=== PATIENT | male | born 1960 | race Caucasian/White ===

== ENCOUNTER 2017-06-01 14:39 | Observation (INO) | payer BC ==
[2017-06-01 14:54] VITALS: BMI 21.2
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
--- NOTE | 2017-06-01 15:04 | PDOC ---
Attending Attestation - HPI HPI: 06/01/17 17:01 The patient is a 56 year old male, with a significant past medical history of acoustic neuroma (1cm), who presents to the emergency department with, approx. four days of progressively worsening tongue and lower right facial numbness. The patient describes the tongue and lower right facial numbness as progressing to more of a pins and needles sensation. The patient states he also noticed some bumps on his tongue approx. 4 days ago. He denies any tongue swelling or difficulty swallowing. He denies any recent fevers, chills, headache or dizziness. He denies any recent nausea, vomit, diarrhea or constipation. He denies any recent chest pain or shortness of breath. He denies any recent dysuria, frequency, urgency or hematuria. Allergies: NKA Documentation prepared by Norman Velasco, acting as medical records custodian for Leny Thomson DO. - Physicial Exam PE: 06/01/17 17:02 GENERAL: Awake, alert, and fully oriented, in no acute distress HEAD: No signs of trauma EYES: PERRLA, EOMI, sclera anicteric, conjunctiva clear ENT: Auricles normal inspection, hearing grossly normal, nares patent, oropharynx clear without exudates. Moist mucosa NECK: Normal ROM, supple, no lymphadenopathy, JVD, or masses LUNGS: Breath sounds equal, clear to auscultation bilaterally. No wheezes, and no crackles HEART: Regular rate and rhythm, normal S1 and S2, no murmurs, rubs or gallops ABDOMEN: Soft, nontender, normoactive bowel sounds. No guarding, no rebound. No masses EXTREMITIES: Normal range of motion, no edema. No clubbing or cyanosis. No cords, erythema, or tenderness NEUROLOGICAL: (+) Pins and needles sensation to the right side of face with palpation. Cranial nerves II through XII grossly intact. Normal speech, normal gait SKIN: Warm, Dry, normal turgor, no rashes or lesions noted. - Medical Decision Making 06/01/17 16:[address] Quintero at 4:30 pm. Case discussed. <Norman Velasco - Last Filed: 06/01/17 17:01> - Resident Resident Name: Syeda Talamantes - ED Attending Attestation I have performed the following: I have examined & evaluated the patient, The case was reviewed & discussed with the resident, I agree w/resident's findings & plan, Exceptions are as noted - Medical Decision Making 06/01/17 15:03 I, Dr. Leny Thomson, DO, attest that this document has been prepared under my direction and personally reviewed by me in its entirety. I further attest, that it accurately reflects all work, treatment, procedures and medical decision -making performed by me. 06/01/17 16:32 a/p: 56yo male with 4 days of lower lip and R sided tongue pins/needles -will check labs -will discuss with neuro with hx of acoustic neuroma for poss imaging otherwise neuro intact no facial droop 06/01/17 16:[address] Quintero - recommends MRI w/wo contrast for further eval of paresthesias labs pending 06/01/17 17:45 pt requires MRI - will keep in obs pending MRI consult placed to Dr. Quintero for eval in AM pt will be placed in obs under Dr. Shen <Leny Thomson - Last Filed: 06/01/17 17:46> Heart Score/ECG Review - ECG Intrepretation Comment:: 06/01/17 17:06 sinus at 70 w rbbb, q waves inferior leads that are age indeterminate <Leny Thomson - Last Filed: 06/01/17 17:46>
[2017-06-01 16:55] LABS: BASO % 1.1 % (0-2.0); EOS % 2.7 % (0-4.5); HEMATOCRIT 40.1 % (35.4-49); HEMOGLOBIN 13.6 GM/dL (11.7-16.9); LYMPH % 26.2 % (8-40); MCH 30.6 pg (25.7-33.7); MCHC 33.9 g/dl (32.0-35.9); MEAN CELL VOLUME 90.2 fl (80-96); MEAN PLT VOLUME 8.4 fl (7.5-11.1); MONO % 10.3 % (3.8-10.2); NEUT % 59.7 % (42.8-82.8); PLATELET COUNT 322 K/MM3 (134-434); RBC 4.45 M/mm3 (4.00-5.60); RDW 15.4 % (11.9-15.9); WHITE BLOOD COUNT 10.8 K/mm3 (4.0-10.0)
[2017-06-01 17:11] LABS: INR 1.02 (0.82-1.09); PROTHROMBIN TIME (PATIENT) 11.5 SEC (9.98-11.88)
[2017-06-01 17:14] LABS: ACTIVATED PTT 32.7 SECONDS (26.9-34.4)
[2017-06-01 17:21] LABS: ANION GAP 12 (8-16); BILIRUBIN,TOTAL 0.3 mg/dL (0.2-1.0); BLOOD UREA NITROGEN 14 mg/dL (7-18); CALCIUM 9.2 mg/dL (8.5-10.1); CHLORIDE 106 mmol/L (98-107); CO2 22 mmol/L (21-32); CREATININE 0.6 mg/dL (0.7-1.3); GLUCOSE,RANDOM 88 mg/dL (74-106); MAGNESIUM 2.1 mg/dL (1.8-2.4); POTASSIUM 4.2 mmol/L (3.5-5.1); SGOT/AST 37 U/L (15-37); SODIUM 140 mmol/L (136-145); TOT PROT 7.7 g/dl (6.4-8.2)
[2017-06-01 17:23] LABS: ALK PHOS 103 U/L (45-117); SGPT/ALT 57 U/L (12-78)
[2017-06-01 17:28] VITALS: BP 123/73; PULSE 70; TEMP 98.4
--- NOTE | 2017-06-01 18:55 | PN ---
Teaching Attending Note Name of Resident: Darling Daley ATTENDING PHYSICIAN STATEMENT I saw and evaluated the patient. I reviewed the resident's note and discussed the case with the resident. I agree with the resident's findings and plan as documented. SUBJECTIVE:56yo M with PMH acoustic neuroma coming in with parathesia limited to the upper lip and partial lower lip on R side of face. When came to assess pt states he has prescription of MRI awaiting insurance authorization. Does not want to stay unless MRI can be done tonight. Expressed desire to go home and will sign out AMA. plan to call his own neurologist in AM to expedite his MRI as he believes its a "specific" kind and does not want double MRI. counseled on risks and benefits of staying including worsening of symptoms, permanent damage, and . verbalized understanding of risks.
--- NOTE | 2017-06-01 18:55 | HP ---
CHIEF COMPLAINT: R sided tongue/facial numbness HISTORY OF PRESENT ILLNESS: 56yo man with PMH of acoustic neuroma who presents to ED with 4 days of partial R tongue and lower lip numbness. Denies any focal weakness and dizziness. Patient stated that he already has a prescription for MRI pending insurance authorization. Patient expressed that he does not wish to stay overnight if MRI can not be done this evening. Explained that we can not guarantee imaging will be done this evening. Pt expressed that he would like to go home. All risks and benefits of staying were discussed with the patient, including worsening of symptoms, permanent damage, and . The patient verbalized understanding of the risks and benefits. He agreed to call his Neurologist tomorrow morning to try to expedite the MRI, and will make him aware of his new symptoms. He was also given the name of Dr. Rosa, local Neurologist. HOME MEDICATIONS: Home Medications Medication Instructions Recorded Oxycodone HCl/Acetaminophen 1 - 2 tab PO Q6H PRN #0 tablet 07/22/12 [Percocet 5-325 mg Tablet] Aspirin [ASA -] 81 mg PO DAILY 06/01/17 Atorvastatin Ca [Lipitor] 80 mg PO HS 06/01/17 Carvedilol [Coreg -] 12.5 mg PO BID 06/01/17 Lisinopril [Prinivil] 10 mg PO DAILY 06/01/17 Prasugrel HCl [Effient] 10 mg PO DAILY 06/01/17 REVIEW OF SYSTEMS CONSTITUTIONAL: Absent: fever, chills, diaphoresis, generalized weakness, malaise, loss of appetite, weight change HEENT: Absent: rhinorrhea, nasal congestion, throat pain, throat swelling, difficulty swallowing, mouth swelling, ear pain, eye pain, visual changes CARDIOVASCULAR: Absent: chest pain, syncope, palpitations, irregular heart rate, lightheadedness , peripheral edema RESPIRATORY: Absent: cough, shortness of breath, dyspnea with exertion, orthopnea, wheezing, stridor, hemoptysis GASTROINTESTINAL: Absent: abdominal pain, abdominal distension, nausea, vomiting, diarrhea, constipation, melena, hematochezia GENITOURINARY: Absent: dysuria, frequency, urgency, hesitancy, hematuria, flank pain, genital pain MUSCULOSKELETAL: Absent: myalgia, arthralgia, joint swelling, back pain, neck pain SKIN: Absent: rash, itching, pallor HEMATOLOGIC/IMMUNOLOGIC: Absent: easy bleeding, easy bruising, lymphadenopathy, frequent infections ENDOCRINE: Absent: unexplained weight gain, unexplained weight loss, heat intolerance, cold intolerance NEUROLOGIC: +R sided tongue paresthesias Absent: headache, focal weakness or paresthesias, dizziness, unsteady gait, seizure, mental status changes, bladder or bowel incontinence PSYCHIATRIC: Absent: anxiety, depression, suicidal or homicidal ideation, hallucinations. PHYSICAL EXAMINATION Vital Signs - 24 hr 06/01/17 06/01/17 14:51 17:26 Temperature 98 F 98.4 F Pulse Rate 81 Pulse Rate [ 70 Left Apical] Respiratory 20 16 Rate Blood Pressure 137/90 Blood Pressure 123/73 [Left Arm] O2 Sat by Pulse 99 98 Oximetry (%) PE: N/A Laboratory Results - last 24 hr 06/01/17 06/01/17 06/01/17 16:34 16:34 16:45 WBC 10.8 H D RBC 4.45 Hgb 13.6 Hct 40.1 MCV 90.2 MCH 30.6 MCHC 33.9 RDW 15.4 Plt Count 322 MPV 8.4 D Neutrophils % 59.7 D Lymphocytes % 26.2 D Monocytes % 10.3 H Eosinophils % 2.7 Basophils % 1.1 PT with INR 11.50 INR 1.02 PTT (Actin FS) 32.7 Sodium 140 Potassium 4.2 Chloride 106 Carbon Dioxide 22 D Anion Gap 12 BUN 14 Creatinine 0.6 L Creat Clearance w eGFR > 60 Random Glucose 88 Calcium 9.2 Magnesium 2.1 Total Bilirubin 0.3 AST 37 D ALT 57 D Alkaline Phosphatase 103 Total Protein 7.7 Albumin 4.0 Visit type - Emergency Visit Emergency Visit: Yes ED Registration Date: 06/01/17 Care time: The patient presented to the Emergency Department on the above date and was hospitalized for further evaluation of their emergent condition. - New Patient This patient is new to me today: Yes Date on this admission: 06/01/17 - Critical Care Critical Care patient: No Hospitalist Screening - Colonoscopy Questionnaire Colonoscopy Questionnaire: Colonoscopy Questionnaire - Patient: 50 - 75 years old and never had a screening colonoscopy: Unknown History of colon or rectal polyps, or CA: Unknown History of IBD, Crohn's disease or UC: Unknown History of abdominal radiation therapy as a child: Unknown - Relative: 1 with colon or rectal CA, or polyps at age 60 or younger: Unknown Colon or rectal CA diagnosed at age 45 or younger: Unknown Multiple relatives with colon or rectal CA: Unknown - Outcome: Screening Result: Negative Screen
--- NOTE | 2017-06-01 19:11 | DS ---
Physical Exam: SUBJECTIVE: Patient seen and examined. OBJECTIVE: Vital Signs Period Temp Pulse Resp BP Sys/Smiley Pulse Ox Last 24 Hr 98 F-98.4 F 70-81 16-20 123-137/73-90 98-99 PHYSICAL EXAM: N/A Laboratory Results - last 24 hr 06/01/17 06/01/17 06/01/17 16:34 16:34 16:45 WBC 10.8 H D RBC 4.45 Hgb 13.6 Hct 40.1 MCV 90.2 MCH 30.6 MCHC 33.9 RDW 15.4 Plt Count 322 MPV 8.4 D Neutrophils % 59.7 D Lymphocytes % 26.2 D Monocytes % 10.3 H Eosinophils % 2.7 Basophils % 1.1 PT with INR 11.50 INR 1.02 PTT (Actin FS) 32.7 Sodium 140 Potassium 4.2 Chloride 106 Carbon Dioxide 22 D Anion Gap 12 BUN 14 Creatinine 0.6 L Creat Clearance w eGFR > 60 Random Glucose 88 Calcium 9.2 Magnesium 2.1 Total Bilirubin 0.3 AST 37 D ALT 57 D Alkaline Phosphatase 103 Total Protein 7.7 Albumin 4.0 HOSPITAL COURSE: Date of Admission:06/01/17 Date of Discharge: 06/01/17 56yo man with PMH of acoustic neuroma who presents to ED with 4 days of partial R tongue and lower lip numbness. Denies any focal weakness and dizziness. Patient stated that he already has a prescription for MRI pending insurance authorization. Patient expressed that he does not wish to stay overnight if MRI can not be done this evening. Explained that we can not guarantee imaging will be done this evening. Pt expressed that he would like to go home. All risks and benefits of staying were discussed with the patient, including worsening of symptoms, permanent damage, and . The patient verbalized understanding of the risks and benefits. He agreed to call his Neurologist tomorrow morning to try to expedite the MRI, and will make him aware of his new symptoms. He was also given the name of Dr. Rosa, local Neurologist. Patient left AMA. Minutes to complete discharge: 30 Discharge Summary Reason For Visit: FACIAL PARESTHESIA - Instructions - Home Medications Comprehensive Discharge Medication List: Ambulatory Orders Oxycodone HCl/Acetaminophen [Percocet 5-325 mg Tablet] 1 - 2 tab PO Q6H PRN #0 tablet 07/22/12 Aspirin [ASA -] 81 mg PO DAILY 06/01/17 Atorvastatin Ca [Lipitor] 80 mg PO HS 06/01/17 Carvedilol [Coreg -] 12.5 mg PO BID 06/01/17 Lisinopril [Prinivil] 10 mg PO DAILY 06/01/17 Prasugrel HCl [Effient] 10 mg PO DAILY 06/01/17 This patient is new to me today: Yes Date on this admission: 06/01/17 Emergency Visit: Yes ED Registration Date: 06/01/17 Care time: The patient presented to the Emergency Department on the above date and was hospitalized for further evaluation of their emergent condition. Critical Care patient: No - Discharge Referral Referred to [facility] No
--- NOTE | 2017-06-02 14:56 | EKG ---
Test Reason : Blood Pressure : / mmHG Vent. Rate : 070 BPM Atrial Rate : 070 BPM P-R Int : 138 ms QRS Dur : 134 ms QT Int : 410 ms P-R-T Axes : 018 114 045 degrees QTc Int : 442 ms NORMAL SINUS RHYTHM RIGHT BUNDLE BRANCH BLOCK LEFT POSTERIOR FASCICULAR BLOCK BIFASCICULAR BLOCK POSSIBLE INFERIOR INFARCT (CITED ON OR BEFORE 17-SEP-2015) ANTEROSEPTAL INFARCT (CITED ON OR BEFORE 17-SEP-2015) ABNORMAL ECG WHEN COMPARED WITH ECG OF 17-SEP-2015 20:21, LEFT POSTERIOR FASCICULAR BLOCK IS NOW PRESENT QUESTIONABLE CHANGE IN INITIAL FORCES OF ANTEROSEPTAL LEADS ST NO LONGER ELEVATED IN ANTERIOR LEADS Confirmed by MELVA WILLIAM, ISMAEL ([id number]) on 06/02/2017 2:56:24 PM Referred By: Confirmed By:ISMAEL FRYE MD
== END 2017-06-01 19:38 | disposition left against medical advice (07) ==
LOC: JER 14:39 → JERBED 17:37
PROVIDERS: ADMIT Internal Medicine; ATTEND Internal Medicine
DX: R20.2 Paresthesia of skin (principal); D33.3 Benign neoplasm of cranial nerves; I25.2 Old myocardial infarction; F17.210 Nicotine dependence, cigarettes, uncomplicated; Z95.5 Presence of coronary angioplasty implant and graft; Z79.82 Long term (current) use of aspirin; Z86.79 Personal history of other diseases of the circulatory system
CPT/HCPCS: 36415; 71046-TC-FY; 80053; 83735; 85025; 85610; 85730; 93005; 93010; 99285-25; G0378

== ENCOUNTER 2021-07-11 08:08 | Emergency (ER) | payer BC ==
[2021-07-11 08:17] VITALS: TEMP 98.3; BMI 21.2
[2021-07-11] MEDS ORDERED: FAMOTIDINE 20 MG/50 ML IVPB 20 MG/50 ML MG IVPB ONE (08:43)
[2021-07-11] MEDS ORDERED: DEXAMETHASONE SOD PHOSPHATE 10 MG/1 ML VIAL IVPUSH ONE (08:43)
[2021-07-11] MEDS ORDERED: DEXAMETHASONE SOD PHOSPHATE 10 MG/1 ML VIAL ONE (08:47)
[2021-07-11] MEDS ORDERED: FAMOTIDINE 10 MG/ML VIAL IVPB ONE (08:48)
[2021-07-11 09:07] LABS: BASO % 1.1 % (0-2.0); EOS % 0.4 % (0-4.5); HEMATOCRIT 42.8 % (35.4-49); HEMOGLOBIN 14.6 GM/dL (11.7-16.9); LYMPH % 12.3 % (8-40); MCH 32.4 pg (25.7-33.7); MEAN CELL VOLUME 95.3 fl (80-96); MEAN PLT VOLUME 8.9 fl (7.5-11.1); MONO % 8.9 % (3.8-10.2); NEUT % 77.3 % (42.8-82.8); PLATELET COUNT 231 10^3/uL (134-434); RBC 4.49 M/mm3 (4.00-5.60); RDW 15.3 % (11.9-15.9); WHITE BLOOD COUNT 8.4 K/mm3 (4.0-10.0)
[2021-07-11 09:44] LABS: ALBUMIN 3.6 g/dl (3.4-5.0); CALCIUM 9.4 mg/dL (8.5-10.1)
[2021-07-11 09:45] LABS: BLOOD UREA NITROGEN 20.8 mg/dL (7-18)
[2021-07-11 09:47] LABS: CREATININE 0.6 mg/dL (0.55-1.3)
[2021-07-11 09:48] LABS: TOT PROT 7.4 g/dl (6.4-8.2)
[2021-07-11] MEDS ORDERED: oxyCODONE HCL 5 MG TABLET PO ONE (12:56)
[2021-07-11] MEDS ORDERED: oxyCODONE HCL 5 MG TABLET ONE (13:18)
[2021-07-11 14:33] VITALS: BP 124/78; PULSE 116
== END 2021-07-11 15:30 | disposition home or self-care (01) ==
LOC: JER 08:08
PROC: 3E033GC Introduction of Other Therapeutic Substance into Peripheral Vein, Percutaneous Approach (ICD-10-PCS; principal; 2021-07-11)
DX: T78.3XXA Angioneurotic edema, initial encounter (principal)
CPT/HCPCS: 36415; 80053; 85025; 99284-25; J1100

== ENCOUNTER 2022-03-31 09:12 | Inpatient (IN) | payer BC, OTHER ==
[2022-03-31] MEDS ORDERED: FOLIC ACID INJECTION - 1 MG, THIAMINE HCL 100 MG, MULTIVIT INJECTION ADULT 10 ML in SOD... IVPB ONE (11:03)
[2022-03-31 11:06] LABS: BASO % 1.4 % (0-2.0); EOS % 0.7 % (0-4.5); HEMATOCRIT 37.3 % (35.4-49); HEMOGLOBIN 12.2 GM/dL (11.7-16.9); LYMPH % 16.3 % (8-40); MCH 32.2 pg (25.7-33.7); MCHC 32.8 g/dl (32.0-35.9); MEAN CELL VOLUME 98.3 fl (80-96); MONO % 6.2 % (3.8-10.2); NEUT % 75.4 % (42.8-82.8); PLATELET COUNT 352 10^3/uL (134-434); RBC 3.79 M/mm3 (4.00-5.60); RDW 15.2 % (11.9-15.9); WHITE BLOOD COUNT 10.5 K/mm3 (4.0-10.0)
[2022-03-31] MEDS ORDERED: DIPHTH,PERTUSS(ACELL),TET 0.5 ML DISP.SYRIN IM ONE ×2 (11:06→14:05)
[2022-03-31 11:21] LABS: CALCIUM 8.6 mg/dL (8.5-10.1)
[2022-03-31 11:22] LABS: ALBUMIN 3.2 g/dl (3.4-5.0); BLOOD UREA NITROGEN 12.3 mg/dL (7-18)
[2022-03-31 11:25] LABS: CREATININE 0.4 mg/dL (0.55-1.3)
[2022-03-31 11:26] LABS: BILIRUBIN,TOTAL 0.2 mg/dL (0.2-1); TOT PROT 7.3 g/dl (6.4-8.2)
[2022-03-31 11:54] LABS: ACTIVATED PTT 32.3 SECONDS (25.2-36.5); INR 0.88 (0.83-1.09); PROTHROMBIN TIME (PATIENT) 10.1 SEC (9.7-13.0)
[2022-03-31] MEDS ORDERED: MAGNESIUM SULF 50% (8.12 MEQ/2 ML-1 GM VIAL) IVPB ONE (17:51)
[2022-03-31 18:48] LABS: MAGNESIUM 1.6 mg/dL (1.8-2.4)
[2022-03-31] MEDS ORDERED: MAGNESIUM SULFATE IN WATER 2 GM/50 ML IVPB IVPB ONE (18:50)
[2022-03-31] MEDS ORDERED: chlordiazePOXIDE HCL 25 MG CAPSULE PO ONE (19:19)
[2022-03-31] MEDS ORDERED: chlordiazePOXIDE HCL 25 MG CAPSULE ONE (19:36)
[2022-03-31] MEDS ORDERED: diazePAM CARPU-JECT 10 MG/2 ML DISP.SYRIN IVPUSH ONE (21:29)
[2022-03-31] MEDS ORDERED: diazePAM CARPU-JECT 10 MG/2 ML DISP.SYRIN ONE (21:40)
[2022-04-01 03:59] LABS: PHOSPHOROUS 3.5 mg/dL (2.5-4.9)
[2022-04-01 04:30] VITALS: BMI 18.8
[2022-04-01] MEDS ORDERED: amLODIPine BESYLATE 5 MG TABLET (FP) PO ONE (04:42)
[2022-04-01] MEDS ORDERED: ACETAMINOPHEN 500 MG TABLET (FP) PO ONE (04:43)
[2022-04-01] MEDS ORDERED: FOLIC ACID INJECTION - 1 MG, THIAMINE HCL 100 MG, MULTIVIT INJECTION ADULT 10 ML in SOD... IVPB ONE (05:03)
[2022-04-01] MEDS ORDERED: diazePAM 5 MG TABLET PO PRN (05:06)
[2022-04-01] MEDS ORDERED: LORazepam 2 MG/ML SDV VIAL IVPUSH PRN (05:07)
[2022-04-01] MEDS: diazePAM 5 MG TABLET PO SCH ×4 (06:34→22:05)
[2022-04-01] MEDS ORDERED: LISINOPRIL 10 MG TABLET PO SCH (10:00)
[2022-04-01 11:33] LABS: EOS % 1.3 % (0-4.5); HEMOGLOBIN 12.5 GM/dL (11.7-16.9); LYMPH % 13.3 % (8-40); MCH 32.6 pg (25.7-33.7); MCHC 33.7 g/dl (32.0-35.9); MEAN CELL VOLUME 96.9 fl (80-96); MEAN PLT VOLUME 9.1 fl (7.5-11.1); MONO % 7.3 % (3.8-10.2); NEUT % 77.1 % (42.8-82.8); PLATELET COUNT 315 10^3/uL (134-434); RBC 3.82 M/mm3 (4.00-5.60); RDW 14.8 % (11.9-15.9); WHITE BLOOD COUNT 11.1 K/mm3 (4.0-10.0)
[2022-04-01 11:50] LABS: BLOOD UREA NITROGEN 9.6 mg/dL (7-18); CALCIUM 8.8 mg/dL (8.5-10.1); MAGNESIUM 1.9 mg/dL (1.8-2.4)
[2022-04-01 11:53] LABS: CREATININE 0.5 mg/dL (0.55-1.3); PHOSPHOROUS 2.7 mg/dL (2.5-4.9)
[2022-04-01 11:55] LABS: BILIRUBIN,TOTAL 0.9 mg/dL (0.2-1); TOT PROT 6.9 g/dl (6.4-8.2)
[2022-04-01] MEDS ORDERED: POTASSIUM CHLORIDE TABS 20 MEQ TABLET.ER (FP) PO ONE (12:45)
[2022-04-01] MEDS: FOLIC ACID 1 MG TABLET (FP) PO SCH (12:49)
[2022-04-01] MEDS: CARVEDILOL 12.5 MG TABLET (FP) PO SCH ×2 (12:50→22:05)
[2022-04-01] MEDS: THIAMINE HCL 200 MG/2 ML VIAL IVPB SCH (12:51)
[2022-04-01] MEDS: amLODIPine BESYLATE 5 MG TABLET (FP) PO SCH (16:04)
[2022-04-01] MEDS: LIDOCAINE 5% TOPICAL PATCH TP SCH (16:19)
[2022-04-01] MEDS: ACETAMINOPHEN 325 MG TABLET (FP) PO PRN ×2 (16:36→22:06)
[2022-04-01 19:58] LABS: PH,URINE 7.5 (5.0-8.0); URINE APPEARANCE TURBID; URINE BILIRUBIN NEGATIVE (NEGATIVE); URINE COLOR YELLOW; URINE GLUCOSE (UA) NEGATIVE (NEGATIVE); URINE KETONE NEGATIVE (NEGATIVE); URINE LEUK ESTERASE NEGATIVE (NEGATIVE); URINE NITRITE NEGATIVE (NEGATIVE); URINE PROTEIN NEGATIVE (NEGATIVE); URINE UROBILINOGEN 0.2 mg/dL (0.2-1.0)
[2022-04-01] MEDS: LIDOCAINE PATCH REMOVAL MC SCH (22:11)
[2022-04-02] MEDS ORDERED: KETOROLAC TROMETHAMINE 15 MG/ML VIAL IVPUSH ONE (01:59)
[2022-04-02] MEDS: diazePAM 5 MG TABLET PO SCH ×3 (06:14→21:17)
[2022-04-02] MEDS: CARVEDILOL 12.5 MG TABLET (FP) PO SCH ×2 (09:46→21:22)
[2022-04-02] MEDS: FOLIC ACID 1 MG TABLET (FP) PO SCH (09:46)
[2022-04-02] MEDS: amLODIPine BESYLATE 5 MG TABLET (FP) PO SCH (09:46)
[2022-04-02] MEDS: THIAMINE HCL 200 MG/2 ML VIAL IVPB SCH (09:47)
[2022-04-02] MEDS: LIDOCAINE 5% TOPICAL PATCH TP SCH (09:47)
[2022-04-02 09:53] LABS: BASO % 0.7 % (0-2.0); EOS % 2.7 % (0-4.5); HEMATOCRIT 36.8 % (35.4-49); HEMOGLOBIN 12.2 GM/dL (11.7-16.9); LYMPH % 14.6 % (8-40); MCH 32.6 pg (25.7-33.7); MCHC 33.3 g/dl (32.0-35.9); MEAN CELL VOLUME 97.8 fl (80-96); MEAN PLT VOLUME 9.4 fl (7.5-11.1); MONO % 10.2 % (3.8-10.2); NEUT % 71.8 % (42.8-82.8); PLATELET COUNT 269 10^3/uL (134-434); RBC 3.76 M/mm3 (4.00-5.60); RDW 14.3 % (11.9-15.9); WHITE BLOOD COUNT 9.8 K/mm3 (4.0-10.0)
[2022-04-02 10:55] LABS: ALBUMIN 2.8 g/dl (3.4-5.0); BLOOD UREA NITROGEN 8.9 mg/dL (7-18); MAGNESIUM 1.9 mg/dL (1.8-2.4)
[2022-04-02 10:58] LABS: CREATININE 0.4 mg/dL (0.55-1.3)
[2022-04-02 11:00] LABS: BILIRUBIN,TOTAL 0.6 mg/dL (0.2-1); TOT PROT 6.7 g/dl (6.4-8.2)
[2022-04-02] MEDS: POTASSIUM CHLORIDE TABS 20 MEQ TABLET.ER (FP) PO SCH ×2 (11:44→21:16)
[2022-04-02] MEDS: ACETAMINOPHEN 325 MG TABLET (FP) PO PRN ×2 (11:44→21:41)
[2022-04-02] MEDS: MULTIVITAMINS (DAILY MVI) TABLET (FP) PO SCH (11:44)
[2022-04-02] MEDS: AMINO ACIDS/PROTEIN HYDROLYS 30 ML LIQUID.PKT PO SCH ×2 (11:44→17:46)
[2022-04-02] MEDS ORDERED: ATORVASTATIN CA 80 MG TABLET (FP) PO SCH (22:00)
[2022-04-02] MEDS: LIDOCAINE PATCH REMOVAL MC SCH (23:16)
[2022-04-03] MEDS ORDERED: diazePAM 5 MG TABLET PO SCH (06:00)
[2022-04-03 06:31] VITALS: BP 137/84
[2022-04-03 08:46] LABS: BASO % 0.8 % (0-2.0); EOS % 2.8 % (0-4.5); HEMATOCRIT 36.5 % (35.4-49); HEMOGLOBIN 12.1 GM/dL (11.7-16.9); LYMPH % 13.1 % (8-40); MCH 32.6 pg (25.7-33.7); MCHC 33.1 g/dl (32.0-35.9); MEAN CELL VOLUME 98.5 fl (80-96); MEAN PLT VOLUME 9.9 fl (7.5-11.1); MONO % 10.7 % (3.8-10.2); NEUT % 72.6 % (42.8-82.8); PLATELET COUNT 234 10^3/uL (134-434); RDW 14.9 % (11.9-15.9); WHITE BLOOD COUNT 10.7 K/mm3 (4.0-10.0)
[2022-04-03 09:23] LABS: CALCIUM 8.9 mg/dL (8.5-10.1)
[2022-04-03 09:24] LABS: ALBUMIN 2.7 g/dl (3.4-5.0); BLOOD UREA NITROGEN 10.2 mg/dL (7-18); MAGNESIUM 1.7 mg/dL (1.8-2.4)
[2022-04-03 09:27] LABS: CREATININE 0.4 mg/dL (0.55-1.3)
[2022-04-03 09:28] LABS: BILIRUBIN,TOTAL 0.2 mg/dL (0.2-1)
[2022-04-03 09:29] LABS: TOT PROT 6.5 g/dl (6.4-8.2)
[2022-04-03] MEDS: CARVEDILOL 12.5 MG TABLET (FP) PO SCH (09:32)
[2022-04-03] MEDS: amLODIPine BESYLATE 5 MG TABLET (FP) PO SCH (09:32)
[2022-04-03] MEDS: AMINO ACIDS/PROTEIN HYDROLYS 30 ML LIQUID.PKT PO SCH (09:32)
[2022-04-03] MEDS: FOLIC ACID 1 MG TABLET (FP) PO SCH (09:32)
[2022-04-03] MEDS: LIDOCAINE 5% TOPICAL PATCH TP SCH (09:32)
[2022-04-03] MEDS: MULTIVITAMINS (DAILY MVI) TABLET (FP) PO SCH (09:32)
[2022-04-03] MEDS ORDERED: MAGNESIUM OXIDE 400 MG TABLET (FP) PO ONE (09:44)
[2022-04-03] MEDS: THIAMINE HCL 200 MG/2 ML VIAL IVPB SCH (10:30)
[2022-04-03 15:57] VITALS: PULSE 98; RESP 20; TEMP 97.5
[2022-04-04] MEDS ORDERED: diazePAM 5 MG TABLET PO ONE (06:00)
== END 2022-04-03 15:20 | disposition home or self-care (01) | DRG 896 ==
LOC: JER 09:12 → JERBED 04-01 01:47 → J8W 04-01 03:40
PROVIDERS: ADMIT Internal Medicine; ATTEND Nurse Practitioner Acute Care
DX: F10.230 Alcohol dependence with withdrawal, uncomplicated (principal); G93.41 Metabolic encephalopathy; E46 Unspecified protein-calorie malnutrition; Z68.1 Body mass index [BMI] 19.9 or less, adult; S01.81XA Laceration without foreign body of other part of head, initial encounter; M25.512 Pain in left shoulder; M25.511 Pain in right shoulder; I10 Essential (primary) hypertension; G89.29 Other chronic pain; I25.2 Old myocardial infarction; F17.210 Nicotine dependence, cigarettes, uncomplicated; R74.01 Elevation of levels of liver transaminase levels; G25.2 Other specified forms of tremor; W01.0XXA Fall on same level from slipping, tripping and stumbling without subsequent striking against object, initial encounter; Y93.89 Activity, other specified; Y92.89 Other specified places as the place of occurrence of the external cause; Y99.8 Other external cause status
CPT/HCPCS: 0241U-QW; 36415; 70450-TC; 70486-TC; 71045-TC-FY; 72125-TC; 72170-TC-FY; 73030-TC-LT-FY; 73030-TC-RT-FY; 73610-TC-RT-FY; 73630-TC-RT-FY; 80053; 80307; 81003; 82550; 83735; 84100; 84484; 85025; 85610; 85730; 87086; 90715; 93005; 93010; 97116-GP; 97161-GP; 99285-25

== ENCOUNTER → 2022-05-17 | Day surgery (SDC) | payer OTHER, BC | END | disposition home or self-care (01) | LOC: JRADIR 13:44 | PROVIDERS: ATTEND Orthopaedic Surgery Sports Medicine | PROC: 0R9K3ZZ Drainage of Left Shoulder Joint, Percutaneous Approach (ICD-10-PCS; principal; 2022-05-17) | DX: M25.412 Effusion, left shoulder (principal) | CPT/HCPCS: 20610 ==

== ENCOUNTER 2022-06-24 04:12 | Day surgery (SDC) | payer OTHER, BC ==
[2022-06-20 12:57] VITALS: BMI 20.6
[2022-06-24] MEDS ORDERED: PROPOFOL 40 ML ONE (07:28)
[2022-06-24] MEDS ORDERED: MIDAZOLAM HCL 2 MG/2 ML SINGLE DOSE VIAL ONE (07:28)
[2022-06-24] MEDS ORDERED: SUCCINYLCHOLINE CHLORIDE 200 MG/10 ML SYRINGE ONE (07:29)
[2022-06-24] MEDS ORDERED: BUPIVACAINE LIPOSOME/PF (EXPAREL) 266 MG/20 ML VIAL ONE (07:36)
[2022-06-24] MEDS ORDERED: DEXAMETHASONE SOD PHOSPHATE 10 MG/1 ML VIAL ONE (07:36)
[2022-06-24] MEDS ORDERED: BUPIVACAINE HCL/PF 0.5% (5MG/ML) 10 ML VIAL ONE (07:36)
[2022-06-24] MEDS ORDERED: ceFAZolin SODIUM 1 GM VIAL ONE (07:37)
[2022-06-24] MEDS ORDERED: ceFAZolin SODIUM 1 GM VIAL IVPB ONE (09:40)
[2022-06-24] MEDS ORDERED: ONDANSETRON 4 MG/2 ML VIAL IVPUSH PRN (12:09)
[2022-06-24] MEDS: ASPIRIN 81 MG CHEWABLE TABLETS PO SCH (13:46)
[2022-06-24] MEDS: PRASUGREL HCL 10 MG TAB PO SCH (13:46)
[2022-06-24] MEDS: CARVEDILOL 12.5 MG TABLET (FP) PO SCH ×2 (13:46→21:35)
[2022-06-24] MEDS: oxyCODONE HCL 5 MG TABLET PO PRN ×2 (13:58→20:17)
[2022-06-24] MEDS: CEFAZOLIN SODIUM 2 GM in DEXTROSE 5%-WATER - 50 ML IVPB SCH (17:22)
[2022-06-24] MEDS ORDERED: ceFAZolin 2 GRAM PREMIX BAG IVPB SCH (18:00)
[2022-06-24] MEDS: ATORVASTATIN CA 80 MG TABLET (FP) PO SCH ×2 (21:35→21:42)
[2022-06-25] MEDS: CEFAZOLIN SODIUM 2 GM in DEXTROSE 5%-WATER - 50 ML IVPB SCH ×2 (02:04→09:06)
[2022-06-25] MEDS: oxyCODONE HCL 5 MG TABLET PO PRN ×3 (03:58→14:13)
[2022-06-25] MEDS ORDERED: CEFAZOLIN SODIUM 2 GM VIAL ONE (09:03)
[2022-06-25] MEDS: ASPIRIN 81 MG CHEWABLE TABLETS PO SCH ×2 (09:06→09:13)
[2022-06-25] MEDS: PRASUGREL HCL 10 MG TAB PO SCH ×2 (09:06→09:13)
[2022-06-25] MEDS: CARVEDILOL 12.5 MG TABLET (FP) PO SCH (09:06)
[2022-06-25 11:43] VITALS: BP 145/82; PULSE 98; RESP 20; TEMP 98
== END 2022-06-25 14:50 | disposition home or self-care (01) ==
LOC: JASUSAT 04:12 → J6S 13:27 → JASUSAT 06-25 14:50
PROVIDERS: ATTEND Orthopaedic Surgery
PROC: 0RRK00Z Replacement of Left Shoulder Joint with Reverse Ball and Socket Synthetic Substitute, Open Approach (ICD-10-PCS; principal; 2022-06-24 08:00)
DX: M13.812 Other specified arthritis, left shoulder (principal)
CPT/HCPCS: 23472; C1713; 73060-TC-LT-FY; 94760; 97116-GP; 97162-GP; C1776; J1100

== ENCOUNTER 2022-12-19 13:39 | Inpatient (IN) | payer OTHER, BC ==
[2022-12-19] MEDS ORDERED: diazePAM CARPU-JECT 10 MG/2 ML DISP.SYRIN IVPUSH ONE (14:22)
[2022-12-19] MEDS ORDERED: LACTATED RINGERS SOLUTION 1000 ML INFUS.BAG IV ONE ×2 (14:22→17:13)
[2022-12-19] MEDS ORDERED: diazePAM CARPU-JECT 10 MG/2 ML DISP.SYRIN ONE (14:34)
[2022-12-19 15:27] LABS: BASO % 0.3 % (0-2.0); EOS % 1.4 % (0-4.5); HEMOGLOBIN 11.7 GM/dL (11.7-16.9); LYMPH % 12.2 % (8-40); MCH 29.5 pg (25.7-33.7); MCHC 32.6 g/dl (32.0-35.9); MEAN CELL VOLUME 90.5 fl (80-96); MEAN PLT VOLUME 8.9 fl (7.5-11.1); MONO % 5.8 % (3.8-10.2); NEUT % 80.3 % (42.8-82.8); PLATELET COUNT 160 10^3/uL (134-434); RBC 3.98 M/mm3 (4.00-5.60); RDW 19.5 % (11.9-15.9); WHITE BLOOD COUNT 12.6 K/mm3 (4.0-10.0)
[2022-12-19 15:34] LABS: INR 0.92 (0.83-1.09); PROTHROMBIN TIME (PATIENT) 10.7 SEC (9.7-13.0)
[2022-12-19 15:37] LABS: ACTIVATED PTT 25.7 SECONDS (25.2-36.5)
[2022-12-19 16:03] LABS: LACTIC ACID 2.3 mmol/L (0.4-2.0)
[2022-12-19 16:46] LABS: CHLORIDE 98 mmol/L (98-107); POTASSIUM 3.6 mmol/L (3.5-5.1); SODIUM 135 mmol/L (136-145)
[2022-12-19 16:47] LABS: ALBUMIN 3.4 g/dl (3.4-5.0); ANION GAP 9 MMOL/L (8-16); CALCIUM 9.2 mg/dL (8.5-10.1); CO2 28 mmol/L (21-32)
[2022-12-19 16:49] LABS: BLOOD UREA NITROGEN 23.3 mg/dL (7-18); GLUCOSE,RANDOM 127 mg/dL (74-106)
[2022-12-19 16:51] LABS: CREATININE 0.8 mg/dL (0.55-1.3); SGOT/AST 33 U/L (15-37); SGPT/ALT 39 U/L (13-61)
[2022-12-19 16:52] LABS: BILIRUBIN,TOTAL 0.7 mg/dL (0.2-1); TOT PROT 6.9 g/dl (6.4-8.2)
[2022-12-19 16:54] LABS: ALK PHOS 120 U/L (45-117)
[2022-12-19 18:03] LABS: VENOUS BASE EXCESS 4.5 mmol/L (-2-2); VENOUS O2 SATURATION 63.4 % (70-80); VENOUS PCO2 40.7 mmHg (38-52); VENOUS PH 7.465 (7.310-7.410)
[2022-12-19] MEDS ORDERED: ACETAMINOPHEN 325 MG TABLET (FP) PO PRN (22:00)
[2022-12-19] MEDS: CARVEDILOL 12.5 MG TABLET (FP) PO SCH (22:46)
[2022-12-19] MEDS: ATORVASTATIN CA 80 MG TABLET (FP) PO SCH (22:47)
[2022-12-19] MEDS: oxyCODONE HCL 5 MG TABLET PO PRN (23:16)
[2022-12-19 23:36] VITALS: BMI 21.7
[2022-12-20] MEDS: ASPIRIN 81 MG CHEWABLE TABLETS PO SCH (09:07)
[2022-12-20] MEDS: PRASUGREL HCL 10 MG TAB PO SCH (09:07)
[2022-12-20] MEDS: CARVEDILOL 12.5 MG TABLET (FP) PO SCH ×2 (09:07→21:31)
[2022-12-20] MEDS: ENOXAPARIN NA (PORCINE) 40 MG/0.4 ML DISP.SYRIN SQ SCH (09:07)
[2022-12-20 09:17] LABS: BASO % 0.3 % (0-2.0); EOS % 4.7 % (0-4.5); HEMATOCRIT 33.2 % (35.4-49); LYMPH % 18.5 % (8-40); MCH 29.7 pg (25.7-33.7); MEAN CELL VOLUME 90.1 fl (80-96); MEAN PLT VOLUME 8.8 fl (7.5-11.1); MONO % 10.1 % (3.8-10.2); NEUT % 66.4 % (42.8-82.8); PLATELET COUNT 163 10^3/uL (134-434); RBC 3.68 M/mm3 (4.00-5.60); RDW 19.8 % (11.9-15.9); WHITE BLOOD COUNT 10.1 K/mm3 (4.0-10.0)
[2022-12-20] MEDS: oxyCODONE HCL 5 MG TABLET PO PRN ×2 (09:29→20:08)
[2022-12-20 09:30] LABS: POTASSIUM 3.5 mmol/L (3.5-5.1)
[2022-12-20] MEDS: ARTIFICIAL TEARS (POLYVINYL ALCOHOL) OPTH DROPS OD SCH ×4 (09:30→21:32)
[2022-12-20 09:33] LABS: CALCIUM 8.4 mg/dL (8.5-10.1)
[2022-12-20 09:34] LABS: BLOOD UREA NITROGEN 17.8 mg/dL (7-18); MAGNESIUM 1.7 mg/dL (1.8-2.4)
[2022-12-20 09:37] LABS: CREATININE 0.6 mg/dL (0.55-1.3)
[2022-12-20] MEDS ORDERED: MAGNESIUM 1GM/D5W 100ML - 100 ML IVPB IVPB ONE (11:19)
[2022-12-20] MEDS: SODIUM CHLORIDE 1,000 ML IV SCH (12:03)
[2022-12-20] MEDS: ATORVASTATIN CA 80 MG TABLET (FP) PO SCH (21:31)
[2022-12-20] MEDS: diazePAM 5 MG TABLET PO SCH (21:31)
[2022-12-20] MEDS: THIAMINE HCL 200 MG/2 ML VIAL IVPB SCH (21:32)
[2022-12-20 23:44] VITALS: RESP 18
[2022-12-21] MEDS: diazePAM 5 MG TABLET PO SCH ×3 (06:20→17:13)
[2022-12-21] MEDS: THIAMINE HCL 200 MG/2 ML VIAL IVPB SCH ×2 (06:20→12:34)
[2022-12-21] MEDS: ARTIFICIAL TEARS (POLYVINYL ALCOHOL) OPTH DROPS OD SCH ×3 (09:08→17:14)
[2022-12-21] MEDS: oxyCODONE HCL 5 MG TABLET PO PRN (09:09)
[2022-12-21] MEDS: ASPIRIN 81 MG CHEWABLE TABLETS PO SCH (09:09)
[2022-12-21] MEDS: ENOXAPARIN NA (PORCINE) 40 MG/0.4 ML DISP.SYRIN SQ SCH (09:09)
[2022-12-21] MEDS: CARVEDILOL 12.5 MG TABLET (FP) PO SCH (09:09)
[2022-12-21] MEDS: PRASUGREL HCL 10 MG TAB PO SCH (09:10)
[2022-12-21] MEDS: SODIUM CHLORIDE 1,000 ML IV SCH (12:35)
[2022-12-21 18:37] VITALS: BP 137/80; PULSE 84; TEMP 98.1
== END 2022-12-21 18:59 | disposition home or self-care (01) | DRG 897 ==
LOC: JER 13:39 → JERBED 17:55 → OBSVTOIN 17:55 → J6S 21:34
PROVIDERS: ADMIT Internal Medicine; ATTEND Family Medicine
PROC: HZ2ZZZZ Detoxification Services for Substance Abuse Treatment (ICD-10-PCS; principal; 2022-12-19)
DX: F10.239 Alcohol dependence with withdrawal, unspecified (principal); R56.9 Unspecified convulsions; I25.10 Atherosclerotic heart disease of native coronary artery without angina pectoris; I25.2 Old myocardial infarction; E78.5 Hyperlipidemia, unspecified; F17.210 Nicotine dependence, cigarettes, uncomplicated; G51.0 Bell's palsy; Z95.5 Presence of coronary angioplasty implant and graft; S00.83XA Contusion of other part of head, initial encounter; W18.39XA Other fall on same level, initial encounter; Y92.89 Other specified places as the place of occurrence of the external cause
CPT/HCPCS: 36415; 70450-TC; 70486-TC; 71045-TC-FY; 72125-TC; 73521-TC-FY; 80048; 80053; 80307; 82550; 82553; 82803; 82962; 83605; 83735; 85025; 85610; 85730; 86850; 86900; 86901; 93005; 93010; 97116-GP; 97162-GP; 99285-25

== ENCOUNTER 2023-01-13 23:58 | Emergency (ER) | payer OTHER, BC ==
[2023-01-14 00:56] VITALS: BP 145/89; PULSE 105; RESP 18; TEMP 97.5; BMI 25.0
[2023-01-14 02:57] LABS: EOS % 10.8 % (0-4.5); HEMATOCRIT 37.2 % (35.4-49); HEMOGLOBIN 12.3 GM/dL (11.7-16.9); LYMPH % 37.7 % (8-40); MCH 29.3 pg (25.7-33.7); MEAN CELL VOLUME 88.8 fl (80-96); MEAN PLT VOLUME 7.8 fl (7.5-11.1); MONO % 5.8 % (3.8-10.2); NEUT % 44.7 % (42.8-82.8); PLATELET COUNT 326 10^3/uL (134-434); RBC 4.19 M/mm3 (4.00-5.60); RDW 19.6 % (11.9-15.9); WHITE BLOOD COUNT 9.1 K/mm3 (4.0-10.0)
[2023-01-14 03:06] LABS: INR 0.88 (0.83-1.09); PROTHROMBIN TIME (PATIENT) 10.2 SEC (9.7-13.0)
[2023-01-14 03:09] LABS: ACTIVATED PTT 29.6 SECONDS (25.2-36.5)
[2023-01-14 03:23] LABS: POTASSIUM 3.6 mmol/L (3.5-5.1)
[2023-01-14 03:25] LABS: CALCIUM 8.3 mg/dL (8.5-10.1)
[2023-01-14 03:26] LABS: ALBUMIN 3.1 g/dl (3.4-5.0); BLOOD UREA NITROGEN 13.4 mg/dL (7-18)
[2023-01-14 03:29] LABS: CREATININE 0.7 mg/dL (0.55-1.3)
[2023-01-14 04:25] LABS: BILIRUBIN,TOTAL 0.1 mg/dL (0.2-1)
== END 2023-01-14 06:29 | disposition home or self-care (01) ==
LOC: JER 23:58
DX: F10.929 Alcohol use, unspecified with intoxication, unspecified (principal); R00.0 Tachycardia, unspecified; Y90.8 Blood alcohol level of 240 mg/100 ml or more
CPT/HCPCS: 36415; 70450-TC; 72125-TC; 80053; 80307; 85025; 85610; 85730; 93005; 93010; 99285-25